=== PATIENT | male | born 1950 | race African-American/Black ===

== ENCOUNTER 2022-03-09 11:42 | Outpatient (CLI) | payer MEDICARE, MEDICAID, SELFPAY ==
--- NOTE | ~2022-03-09 | US_ITS ---
US venous doppler [facility] DATE: 03/09/2022 12:56 INDICATION: Left lower extremity swelling after knee joint replacement TECHNIQUE: Real-time and color flow imaging and Doppler analysis of the veins of the left lower extre mity COMPARISON: None FINDINGS: The left greater saphenous vein is patent. There is spontaneous and phasic flow and normal augmentation and color flow signal and normal compression of the left common femoral, femoral and pop liteal veins. There is thrombosis of the distal left posterior tibial vein. The peroneal veins are not visualized. IMPRESSION: Deep venous thrombosis of distal left posterior tibial vein. Left peroneal veins are not visualized, suggesting deep venous thrombosis. Dr. Hughes telephoned the report on 03/09/[address] Xiong's Exploration Geologist's voicema il; there was no answer from the corner cutter machine operator, despite prompt to dial corner cutter machine operator and then #. Reviewed, dictated and finalized at [facility]. Reviewed, dictated and finalized at [facility]. IMPRESSION: Deep venous thrombosis of distal left posterior tibial vein. Left peroneal veins are not visualized, suggesting deep venous thrombosis. Dr. Hughes telephoned the report on 03/09/[address] Xiong's Medic al Hvac/R Instructor's voicemail; there was no answer from the corner cutter machine operator, despite prompt to dial corner cutter machine operator and then #.
== END 2022-03-09 11:43 | disposition home or self-care (01) ==
LOC: ANHIMG 11:52
PROVIDERS: Visit Provider Orthopaedic Surgery
DX: I82.442 Acute embolism and thrombosis of left tibial vein (principal); R60.0 Localized edema
CPT/HCPCS: 93971

== ENCOUNTER 2022-07-02 11:46 | Outpatient (CLI) | payer MEDICARE, MEDICAID, SELFPAY ==
[2022-07-02 12:12] LABS: Basophils Percent Auto 0.4 % (0.2-1.2); Eosinophils Absolute Auto 0.2 K/mm3 (0-0.3); Hematocrit 41.4 % (42.0-52.0); Hemoglobin 13.2 g/dL (14.0-18.0); Immature Granulocyte Absolute 0.03 K/mm3 (0.00-0.031); Immature Granulocyte Percent A 0.4 % (0-0.5); Lymphocytes Percent Auto 17.6 % (18.3-44.2); Mean Corpuscular HGB Conc 31.9 g/dl (32-36); Mean Platelet Volume 10.2 fl (7.4-10.4); Monocytes Absolute Auto 0.5 K/mm3 (0.1-0.6); Monocytes Percent Auto 5.8 % (2.6-8.5); Neutrophils Absolute Auto 5.8 K/mm3 (1.3-6.7); Neutrophils Percent Auto 72.8 % (45.5-73.1); Platelet Count Result 320 k/mm3 (150-375); Red Blood Count 4.55 M/mm3 (4.6-6.20); Red Cell Distribution Width 13.8 % (11.5-14.5)
[2022-07-02 15:29] LABS: Alanine Aminotransferase 23 U/L (6-50); Albumin Level 4.7 g/dL (3.5-5.1); Alkaline Phosphatase 102 U/L (38-126); Anion Gap 12 mmol/L (8-16); Aspartate Amino Transferase 26 U/L (17-59); Bilirubin,Total 0.4 mg/dL (0.2-1.3); Blood Urea Nitrogen 19 mg/dL (9-20); Carbon Dioxide 24 mmol/L (22-30); Chloride 100 mmol/L (98-107); Estimated Glomerular Filt Rate > 60; Glucose 77 mg/dL (65-110); Potassium 4.9 mmol/L (3.4-5.0); Sodium 136 mmol/L (137-145)
[2022-07-02 15:36] LABS: Immunoglobulin A 319 mg/dL (70-400); Immunoglobulin G 1205 mg/dL (700-1600); Immunoglobulin M 39 mg/dL (40-230)
[2022-07-04 22:56] LABS: Albumin 4.3 g/dL (3.8-4.8); Alpha 1 Globulin 0.3 g/dL (0.2-0.3); Alpha 2 Globulin 0.8 g/dL (0.5-0.9); Beta 1 Globulin 0.5 g/dL (0.4-0.6); Gamma Globulin 1.2 g/dL (0.8-1.7); Protein, Total 7.6 g/dL (6.1-8.1)
[2022-07-05 07:21] LABS: Kappa\\Lambda Light Chains 1.94 (0.26-1.65); Lambda Light Chain 18.2 mg/L (5.7-26.3)
== END 2022-07-02 11:47 | disposition home or self-care (01) ==
PROVIDERS: Visit Provider Internal Medicine Hematology & Oncology
DX: D72.9 Disorder of white blood cells, unspecified (principal)
CPT/HCPCS: 36415; 80053; 82784; 83883; 84155; 84165; 85025

== ENCOUNTER 2025-07-22 09:30 | Outpatient (RCR) | payer MEDICARE, MEDICAID, SELFPAY ==
[2025-06-08 09:40] VITALS: BMI 33.3
[2025-06-08 09:53] VITALS: BMI 33.3
[2025-06-24 09:30] VITALS: BMI 33.3
[2025-06-24 09:41] VITALS: BMI 33.3
[2025-07-22 09:30] VITALS: BMI 32.8
--- NOTE | 2025-07-23 09:08 | PCDIET ---
07/23/25: MNT consult notes faxed to referring provider.
--- NOTE | 2025-09-28 13:11 | PCDIET ---
09/28/25: A1C: 6.7% per Pt julieta in Sep on phone call today. (down from >8%) Rony called to schedule MNT follow up in 2025. Reports to recovering from recent surgery. MNT follow up scheduled for October Updated MNT follow up referral request faxed to original referring provider: Janneth Frank NP
== END 2025-08-23 11:40 | disposition home or self-care (01) ==
LOC: ANHDMC 09:30
DX: E11.65 Type 2 diabetes mellitus with hyperglycemia (principal); Z79.4 Long term (current) use of insulin; Z71.3 Dietary counseling and surveillance
CPT/HCPCS: 97802; 97803